=== PATIENT | female | born 1980 | race Caucasian/White ===

== ENCOUNTER 2016-07-31 04:03 | Emergency (ER) | payer BC, OTHER ==
[~2016-07-31] VITALS: Ht 172.7 cm; Wt 109.0 kg
[2016-07-31] MEDS ORDERED: SODIUM CHLORIDE FLUSH 3 ML SYR IV PRN (04:25)
[2016-07-31] MEDS ORDERED: SODIUM CHLORIDE 250 ML IV PRN (04:25)
[2016-07-31] MEDS ORDERED: KETOROLAC 30 MG/ML (TORADOL) 1 ML VIAL IV ONE (04:25)
[2016-07-31] MEDS ORDERED: SODIUM CHLORIDE FLUSH 10 ML SYR IV PRN ×2 (04:25)
[2016-07-31 04:52] LABS: BASOPHILS % (AUTO) 0 % (0-2); EOSINOPHILS # (AUTO) 0.5 10^3uL; EOSINOPHILS % (AUTO) 3 % (0-4); LYMPHOCYTES # (AUTO) 3.2 X10^3; MEAN CORPUSCULAR HGB CONC 35.3 g/dL (31.0-37.0); MEAN CORPUSCULAR VOLUME 89 FL (80-100); MEAN PLATELET VOLUME 10.5 FL (6.0-9.5); MONOCYTES # (AUTO) 1.2 X10^3; MONOCYTES % (AUTO) 9 % (3-11); NEUTROPHILS # (AUTO) 9.2 X10^3; NEUTROPHILS % (AUTO) 65 % (51-67); PLATELET COUNT 277 10^3uL (150-450); WHITE BLOOD COUNT 14.28 10^3uL (4.0-11.0)
[2016-07-31 04:59] LABS: ALBUMIN 4.2 g/dL (3.4-5.0); ALKALINE PHOSPHATASE 89 U/L (38-126); ANION GAP 13.3 MEQ/L (3-15); BUN/CREATININE RATIO 25 (10-20); CALCULATED IONIZED CALCIUM 3.9 mg/dL (3.8-4.6); CREATINE KINASE 45 U/L (30-135); TOTAL PROTEIN 7.4 g/dL (6.4-8.5)
[2016-07-31 05:10] LABS: MEAN CORPUSCULAR HEMOGLOBIN 31.3 PG (26.0-34.0)
--- NOTE | 2016-07-31 05:25 | NUR ---
Pt resting quietly. Rates pain 2/10 at this time. Urine specimen sent to lab.
[2016-07-31 05:56] LABS: AMPHETAMINE SCREEN, URINE Negative (Negative); CANNABINOID SCREEN, URINE Negative (Negative); METHAMPHETAMINE SCREEN URINE S NEGATIVE (NEGATIVE); OPIATE SCREEN URINE Negative (Negative); PROPOXYPHENE STAT NEGATIVE (NEGATIVE)
[2016-07-31] MEDS ORDERED: AZITHROMYCIN 250 MG TAB (ZITHROMAX) PO ONE (06:10)
[2016-07-31 06:24] VITALS: BP 117/71
== END 2016-07-31 06:20 | disposition home or self-care (01) ==
LOC: ED 04:05
DX: J20.9 Acute bronchitis, unspecified (principal); M94.0 Chondrocostal junction syndrome [Tietze]
CPT/HCPCS: 36415; 71010; 80053; 80307; 80320; 82550; 82553; 83735; 83880; 84484; 85025; 85379; 85610; 85730; 93005; 96361; 96374; 99285; J1885; J7030; 93010; 99284

== ENCOUNTER → 2016-09-07 | Outpatient (REF) | payer OTHER, BC ==
[~2016-09-07] MED LIST: AZIT250T81 PO; CLIN-79 PO; CODE-54 PO; HYDR-3702 PO; No home meds
[2016-09-07 16:27] LABS: ALBUMIN 4.4 g/dL (3.4-5.0); TOTAL PROTEIN 7.3 g/dL (6.4-8.5)
== END ==
LOC: LAB 15:28
PROVIDERS: ATTEND Nurse Practitioner Family
DX: R35.1 Nocturia (principal)
CPT/HCPCS: 80076

== ENCOUNTER → 2016-09-14 | Outpatient (REF) | payer OTHER, BC | LOC: LAB 14:15 | PROVIDERS: ATTEND Surgery | DX: L02.91 Cutaneous abscess, unspecified (principal) | CPT/HCPCS: 87070; 87075 ==

== ENCOUNTER 2016-09-21 08:31 | Day surgery (SDC) | payer BC, OTHER ==
[~2016-09-21] VITALS: Ht 172.7 cm; Wt 107.0 kg
[~2016-09-21 08:31] MED LIST changes: +LACTATED RINGERS 1,000 ML IV SCH; +SODIUM CHLORIDE FLUSH 3 ML SYR IV SCH; +ceFAZolin 2,000 MG in SODIUM CHLORIDE VIAL (PF) 20 ML IV SCH
--- OUTSIDE RECORDS SUMMARY | 2016-09-21 08:35 | XMS REPORT | Continuity of Care Document ---
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 Name Role Phone LEISA BARBOSA MD PCP [phone] Insurance Providers Payer Name Policy Number Subscriber Name Relationship [facility] [id number] Josias Tran Self / Same As Patient Advance Directives Directive Response Recorded Date/Time Advanced Directives No 07/31/16 4:19am Chief Complaint and Reason for Visit Chief Complaint Pain Reason for Visit Bronchitis [id number] Problems Active Problems Medical Problem Onset Date Status Bronchitis Unknown Acute Costochondral chest pain Unknown Acute Dental abscess Unknown Acute Muscle strain Unknown Acute Muscle strain Unknown Acute Sinusitis Unknown Acute URI (upper respiratory infection) Unknown Acute Medications Current Home Medications Medication Dose Units Route Directions Days/Qty Instructions Start Date Azithromycin 6 Tab/Pkt 250 Mg ORAL See Instructions for Infection 6 Day One: Take 2 tablets by mouth Days Two-Five: Take 1 tablet by mouth 07/31/16 Acetaminophen/Hydrocodone Bitart 1 Each 1-2 Tab ORAL Every 6 Hours as needed for Pain 30 07/31/16 Past Home Medications Medication Directions Ordered Status Acetaminophen/Codeine 1 Tab Tablet, 1 Tab Oral Every 6 Hours 06/03/14 Discontinued Clindamycin Hcl 300 Mg Capsule, 300 Mg Oral Four Times Daily 06/03/14 Discontinued [No Home Meds] , 06/03/14 Discontinued Social History Query Response Start Date Stop Date Smoking Status Current every day smoker Hospital Discharge Instructions No hospital discharge instructions. Plan of Care Discharge Date 07/31/16 6:20am Disposition 01 HOME OR SELF-CARE Condition at Discharge Stable Instructions/Education Provided Acute Bronchitis in Adults Costochondritis (DC) Prescriptions See Medication Section Referrals LEISA BARBOSA MD - Additional Instructions/Education ED FRANDY if any worse. Azithromycin, norco as directed. See your doctor if not greatly improved in 2-3 days. Some of your test results may not be complete prior to your leaving the Emergency Department. The Emergency Department is not authorized to give test results over the phone. Please contact the doctor's office listed in this packet of information for your final results. Follow up with your primary care physician or return to the Emergency Department for worsening or worrisome symptoms. * Emergency Department phone number: [phone], x [phone]* MEDICAL RECORD If you need copies of your X-rays, call [phone]. If you need copies of your medical record, including lab results, a signed authorization for release of records will be required. A telephone call for release of Health Information is not allowed. BILLING Billing can sometimes be confusing and frustrating. To help avoid confusion in the future, please take a moment to acquaint yourself with the billing parties for services. SERVICE BILLING [facility] Physician Services [facility] X-rays [facility] Patients will receive bills for services from the appropriate provider. If you have any questions about your [facility] bill, our staff will be happy to assist you. Please call [phone], and ask for the billing department. THANK YOU for choosing [facility] as your emergency care provider! Care Plan and Goals ~~Discharge Care Plan~~ Problem: Breathing difficulty Goal: Able to breathe without shortness of air and perform usual activities. Instructions: Take medication(s) as directed. Follow physician discharge instructions. Follow up with primary care physician as directed. Use inhalers as needed. Functional Status No functional status results. Allergies, Adverse Reactions, Alerts Allergen Type Severity Reaction Status Last Updated Penicillin Allergy Unknown Active 07/31/16 Prochlorperazine Allergy Mild Active 07/31/16 Immunizations No immunization records. Vital Signs Acute Vital Signs Vital Response Date/Time Temperature (Fahrenheit) 97.1 07/31/2016 4:19am Pulse 76 bpm 07/31/2016 6:24am Respirations 18 07/31/2016 6:24am Height 5 ft 8 in Weight 240 lb Body Mass Index 36.0 kg/m^2 Results Laboratory Results Test Name Result Units Flags Reference Collection Date/Time Result Date/ Time Comments White Blood Count 14.28 10^3uL H 4.0-11.0 07/31/2016 4:35am 07/31/2016 5 :10am Red Blood Count 4.63 10^6uL 4.00-5.00 07/31/2016 4:35am 07/31/2016 5: 10am Hemoglobin 14.5 g/dL 12.0-15.5 07/31/2016 4:35am 07/31/2016 5:10am Hematocrit 41.10 % 35.00-45.00 07/31/2016 4:35am 07/31/2016 5:10am Mean Corpuscular Volume 89 FL 80-100 07/31/2016 4:35am 07/31/2016 5: 10am Mean Corpuscular Hemoglobin 31.3 PG 26.0-34.0 07/31/2016 4:35am 2016 5:10am Mean Corpuscular Hemoglobin Concent 35.3 g/dL 31.0-37.0 07/31/2016 4: 3507/31/2016 5:10am Red Cell Distribution Width 12.6 % 11.8-15.6 07/31/2016 4:35am 2016 5:10am Platelet Count 277 10^3uL 150-450 07/31/2016 4:35am 07/31/2016 5:10am Mean Platelet Volume 10.5 FL H 6.0-9.5 07/31/2016 4:35am 07/31/2016 5: 10am Neutrophils (%) (Auto) 65 % 51-67 07/31/2016 4:3507/31/2016 5:10am Lymphocytes (%) (Auto) 23 % 20-46 07/31/2016 4:35am 07/31/2016 5:10am Monocytes (%) (Auto) 9 % 3-11 07/31/2016 4:3507/31/2016 5:10am Eosinophils (%) (Auto) 3 % 0-4 07/31/2016 4:3507/31/2016 5:10am Basophils (%) (Auto) 0 % 0-2 07/31/2016 4:3507/31/2016 5:10am Neutrophils # (Auto) 9.2 X10^3 07/31/2016 4:35am 07/31/2016 5:10am Lymphocytes # (Auto) 3.2 X10^3 07/31/2016 4:35am 07/31/2016 5:10am Monocytes # (Auto) 1.2 X10^3 07/31/2016 4:35am 07/31/2016 5:10am Eosinophils # (Auto) 0.5 10^3uL 07/31/2016 4:35am 07/31/2016 5:10am Basophils # (Auto) 0.0 10^3uL 07/31/2016 4:35am 07/31/2016 5:10am Prothrombin Time 10.8 SEC 10.0-12.5 07/31/2016 4:35am 07/31/2016 5: 07am Prothromb Time International Ratio 1.0 0.8-1.4 07/31/2016 4:35am 5:07am Activated Partial Thromboplast Time 29.7 SEC 26.3-36.8 07/31/2016 4: 35am 07/31/2016 5:07am D-Dimer 220 ng/mL 0-500 07/31/2016 4:35am 07/31/2016 5:07am Sodium Level 137 mmol/L 135-150 07/31/2016 4:35am 07/31/2016 5:10am Potassium Level 3.9 mmol/L 3.5-5.1 07/31/2016 4:35am 07/31/2016 5:10am Chloride Level 102 mmol/L 98-108 07/31/2016 4:35am 07/31/2016 5:10am Carbon Dioxide Level 26 mmol/L 22-29 07/31/2016 4:35am 07/31/2016 5: 10am Anion Gap 13.3 MEQ/L 3-15 07/31/2016 4:35am 07/31/2016 5:10am Blood Urea Nitrogen 18 mg/dL # 7-18 07/31/2016 4:35am 07/31/2016 5:10am Creatinine 0.72 mg/dL 0.6-1.2 07/31/2016 4:35am 07/31/2016 5:10am BUN/Creatinine Ratio 25 H 10-07/31/2016 4:35am 07/31/2016 5:10am Estimat Glomerular Filtration Rate 111.5 07/31/2016 4:35am 2016 5:10am Estimated GFR (Non- 92.2 07/31/2016 4:35am 2016 5:10am Glucose Level 100 mg/dL 70-110 07/31/2016 4:35am 07/31/2016 5:10am Calculated Osmolality 267 mosm/L L 280-300 07/31/2016 4:35am 07/31/2016 5:10am Calcium Level 9.0 mg/dL 8.8-10.8 07/31/2016 4:35am 07/31/2016 5:10am Calcium/Ionized Calcium Ratio 3.9 mg/dL 3.8-4.6 07/31/2016 4:3507/31 5:10am Magnesium Level 2.0 mg/dL 1.6-2.3 07/31/2016 4:35am 07/31/2016 5:10am Total Bilirubin 0.6 mg/dL 0.1-1.0 07/31/2016 4:35am 07/31/2016 5:10am Alkaline Phosphatase 89 U/L 38-126 07/31/2016 4:35am 07/31/2016 5:10am Aspartate Amino Transf (AST/SGOT) 15 U/L 15-37 07/31/2016 4:35am 2016 5:10am Alanine Aminotransferase (ALT/SGPT) 31 U/L 30-65 07/31/2016 4:35am 5:10am Total Creatine Kinase 45 U/L 30-135 07/31/2016 4:35am 07/31/2016 5: 10am Creatine Kinase MB 0.6 ng/mL 0.0-6.0 07/31/2016 4:35am 07/31/2016 5: 16am Troponin I < 0.012 ng/mL 0.010-0.080 07/31/2016 4:35am 07/31/2016 5: 16am JJ-Kev-Y-Type Natriuretic Peptide 37 pg/mL 0-125 07/31/2016 4:35am 5:16am <300 ng/mL - HF unlikely Age <50 years, NT-proBNP >450 pg/mL - HF Likely Age 50-75 yrs, NT-proBNP >900 pg/mL - HF Likely Age >75 yrs, NT-proBNP >1800 - HF likely Total Protein 7.4 g/dL 6.4-8.5 07/31/2016 4:35am 07/31/2016 5:10am Albumin 4.2 g/dL 3.4-5.0 07/31/2016 4:35am 07/31/2016 5:10am Albumin/Globulin Ratio 1.312 1.1-1.8 07/31/2016 4:35am 07/31/2016 5: 10am Serum Alcohol < 10.0 mg/dL L 10-80 07/31/2016 4:35am 07/31/2016 5:10am Procedures No known history of procedures. Encounters Encounter Location Arrival/Admit Date Discharge/Depart Date Attending Provider Departed Emergency Room [facility] 07/31/16 4:05am 07/31/16 6:20am ALLAN ZELAYA MD Recent Diagnosis
[2016-09-21 08:37] VITALS: BP 127/85
[2016-09-21] MEDS ORDERED: TERBIN250T PO (08:50)
[2016-09-21] MEDS ORDERED: MINO50CA2 PO (08:50)
[2016-09-21] MEDS ORDERED: LIDOCAINE/EPINEPHRINE 1% 1:100,000 (XYLOCAINE) 30 ML VIAL INJ ONE (09:02)
[2016-09-21] MEDS ORDERED: MIDAZOLAM 2 MG/2 ML (VERSED) VIAL ONE (09:27)
[2016-09-21] MEDS ORDERED: PROPOFOL 20 ML IV ONE (09:29)
[2016-09-21] MEDS ORDERED: ALFENTANIL 500 MCG/ML (ALFENTA) 5 ML AMP IV ONE ×2 (09:29→09:30)
[2016-09-21] MEDS ORDERED: ceFAZolin 1000 MG (ANCEF) VIAL ONE (09:30)
[2016-09-21 10:23] VITALS: BP 116/66
[2016-09-21 10:51] VITALS: BP 124/66
--- NOTE | 2016-09-21 13:04 | OPERATIVE REPORT ---
DATE OF OPERATION: 09/21/2016 PRE-OPERATIVE DIAGNOSIS: 1. Pilonidal sinuses 2. History of pilonidal abscess POST-OPERATIVE DIAGNOSIS: 1. Pilonidal sinuses. 2. History of pilonidal abscess OPERATIVE PROCEDURE: Excision of pilonidal sinuses with primary closure SURGEON: Jaiden Goldman MD BUSINESS SERVICES TECH: PUMA Salazar ANESTHESIA: Monitored anesthesia care with local INDICATIONS: The patient is a 36-year-old referred by Dr. Andrade with recurrent pilonidal infections and three small draining sinus tracts in the midline above the gluteal cleft. She presents today for excision of these. There is no active infection that I can tell. DESCRIPTION OF PROCEDURE: The patient was informed of the risks and benefits and agreed to proceed. She was placed in the prone david-knife position and administered IV sedation as well as preoperative IV antibiotics. When properly anesthetized the skin above the gluteal cleft was prepped and draped in the standard sterile fashion. Then 1% lidocaine with epinephrine was injected in the skin of this region to anesthetize the area that was to be excised. A small fistula probe was used to access the tract where each of these three openings, and two of them were able to be identified easily. These were gently opened with the cutting component of the cautery. There was a scar from a recent drainage procedure just to the right of the midline and both of these tracts appeared to head that direction. The smaller opening in the middle did not accommodate the probe and I did not open that. I decided to excise the skin in the subcutaneous tissue encompassing these tracts, as well as the previous scar, resulting in an area excised that measured about 5 cm x 2 cm. The excision was carried down to healthy adipose tissue and scar tissue was removed as it was encountered. I did not see any pus, hair or debris. There was some granulation tissue that was excised. The wound was then copiously irrigated. The subcutaneous tissue was undermined on the patient's left side using cautery to create a flap for the skin closure. I decided that closing this primarily was reasonable given the lack of contamination and the relative lack of tension. The deepest tissue was reapproximated with interrupted 3-0 Vicryl and then the adipose tissue just above that was closed as well with several 3-0 Vicryl sutures. The skin was closed with 4-0 Ethilon using vertical mattress sutures and dressings were applied. The patient tolerated the procedure without complications.
== END 2016-09-21 11:05 | disposition home or self-care (01) ==
LOC: ASC 08:31
PROVIDERS: ATTEND Surgery
DX: L05.92 Pilonidal sinus without abscess (principal)
CPT/HCPCS: 11771; J0690; J2250; J7120

== ENCOUNTER → 2016-10-30 | Outpatient (REF) | payer BC ==
[~2016-10-30] MED LIST changes: -LACTATED RINGERS 1,000 ML IV SCH; +MINO50CA2 PO; -SODIUM CHLORIDE FLUSH 3 ML SYR IV SCH; +TERBIN250T PO; -ceFAZolin 2,000 MG in SODIUM CHLORIDE VIAL (PF) 20 ML IV SCH
[2016-10-30 10:47] LABS: BASOPHILS % (AUTO) 1 % (0-2); EOSINOPHILS # (AUTO) 0.4 10^3uL; EOSINOPHILS % (AUTO) 4 % (0-4); LYMPHOCYTES # (AUTO) 2.5 X10^3; MEAN CORPUSCULAR HEMOGLOBIN 29.9 PG (26.0-34.0); MEAN CORPUSCULAR HGB CONC 33.3 g/dL (31.0-37.0); MEAN CORPUSCULAR VOLUME 90 FL (80-100); MEAN PLATELET VOLUME 11.2 FL (6.0-9.5); MONOCYTES # (AUTO) 0.7 X10^3; MONOCYTES % (AUTO) 8 % (3-11); NEUTROPHILS # (AUTO) 5.4 X10^3; NEUTROPHILS % (AUTO) 60 % (51-67); PLATELET COUNT 259 10^3uL (150-450); WHITE BLOOD COUNT 8.88 10^3uL (4.0-11.0)
[2016-10-30 10:50] LABS: BILIRUBIN,URINE Negative (Negative); CLARITY,URINE Clear; COLOR,URINE Yellow; GLUCOSE, URINE (UA) Negative (Negative); LEUKOCYTE ESTERASE, URINE Negative (Negative); PH,URINE 5.5 (5.0 - 8.0); UROBILINOGEN,URINE 0.2 mg/dL (0.2-1.0)
== END ==
LOC: LAB 10:10
PROVIDERS: ATTEND Family Medicine
DX: Z01.818 Encounter for other preprocedural examination (principal)
CPT/HCPCS: 81003; 85025